=== PATIENT | female | born 1970 | race Caucasian/White ===

== ENCOUNTER 2019-06-04 19:40 | Emergency (ER) | payer OTHER ==
[~2019-06-04] VITALS: Ht 160 cm; Wt 83.0 kg
[2019-06-04] MEDS ORDERED: SYNTHROID50 MCG (19:46)
[2019-06-04] MEDS ORDERED: MEDROLPACK PO (21:02)
[2019-06-04] MEDS ORDERED: ZYRTEC10 M3 PO (21:02)
== END 2019-06-04 21:12 ==
LOC: ER 19:40
DX: L50.8 Other urticaria (principal); R21 Rash and other nonspecific skin eruption

== ENCOUNTER 2019-10-17 07:27 | Emergency (ER) | payer OTHER ==
[~2019-10-17] VITALS: Ht 154.9 cm; Wt 85.7 kg
[~2019-10-17 07:27] MED LIST: MEDROLPACK PO; SYNTHROID50 MCG; ZYRTEC10 M3 PO
== END 2019-10-17 15:36 | disposition home or self-care (01) ==
LOC: ER 07:27
DX: K57.92 Diverticulitis of intestine, part unspecified, without perforation or abscess without bleeding (principal); R10.32 Left lower quadrant pain

== ENCOUNTER 2022-12-24 19:54 | Emergency (ER) | payer OTHER ==
[~2022-12-24] VITALS: Ht 160 cm; Wt 70.8 kg
[2022-12-24] MEDS ORDERED: LEVOTHYROXINE75 MCG (20:17)
== END 2022-12-24 20:53 | disposition home or self-care (01) ==
LOC: ER 19:54
DX: S61.251A Open bite of left index finger without damage to nail, initial encounter (principal); W54.0XXA Bitten by dog, initial encounter; Y93.9 Activity, unspecified; Y92.018 Other place in single-family (private) house as the place of occurrence of the external cause; Y99.9 Unspecified external cause status; L03.012 Cellulitis of left finger; Z88.8 Allergy status to other drugs, medicaments and biological substances

== ENCOUNTER 2025-03-11 06:31 | Emergency (ER) | payer OTHER ==
[~2025-03-11] VITALS: Ht 157.5 cm; Wt 83.9 kg
[~2025-03-11 06:31] MED LIST changes: +LEVOTHYROXINE75 MCG
[2025-03-11] MEDS ORDERED: GUAIFEN/DEXTROMETHORPHAN/PE 10 ML BLIST.PACK PO ONE ×2 (08:41→08:45)
[2025-03-11] MEDS ORDERED: ACETAMINOPHEN 500 MG GEL..CAP PO ONE ×2 (08:41→08:45)
[2025-03-11 09:43] LABS: BASO % 0.3 % (0.1-1.2); EOS # 0.09 (0.04-0.54); EOS % 0.7 % (0.7-7.0); HEMATOCRIT 36.1 % (34.1-44.9); LYMPH # 0.82 (1.18-3.74); LYMPH % 6.7 % (19.3-53.1); MEAN CORPUSCULAR HEMOGLOBIN 28.6 pg (25.6-32.2); MONO # 0.99 (0.24-0.82); MONO % 8.1 % (4.7-12.5); NEUT # 10.29 (1.56-6.13); NEUT % 83.8 % (34.0-71.1); PLATELET COUNT 263 K/uL (163-369); RED CELL DISTRIBUTION WIDTH 13.7 % (11.6-14.4)
[2025-03-11 09:52] LABS: COVID-19 AG NEGATIVE (NEGATIVE); INFLUENZA A AG NEGATIVE (NEGATIVE); INFLUENZA B AG NEGATIVE (NEGATIVE)
[2025-03-11 09:56] LABS: PH,URINE 5.5 (5.0-8.0); URINE APPEARANCE Cloudy; URINE BILIRRUBIN Negative (NEGATIVE); URINE BLOOD Large; URINE COLOR Dark Yellow; URINE GLUCOSE Negative (NEGATIVE); URINE LEUKOCYTE Small; URINE NITRATE Positive
[2025-03-11 10:01] LABS: URINE EPITHELIAL CELLS 9.3 uL (0.0-38.8); URINE RBC 97.8 uL (0.0-20.8)
[2025-03-11 10:11] LABS: ALBUMIN 3.5 gm/dL (3.4-5.0); BILIRUBIN TOTAL 0.32 mg/dL (0.3-1.2); CALCIUM 9.5 mg/dL (8.5-10.1); CREATININE SERUM 0.54 mg/dL (0.55-1.02); GFR 118.55; GLOBULINA 4.8 G/DL (2.4-3.5); POTASSIUM 3.55 mEq/L (3.5-5.1); TOTAL PROTEIN 8.3 gm/dL (6.4-8.2)
[2025-03-11 10:43] LABS: URINE BACTERIA > 9821.5 uL (0.0-1933); URINE CAST 1.17 uL (0.0-1.40); URINE KETONE 40 (NEGATIVE); URINE PROTEIN 100 (NEGATIVE)
[2025-03-11] MEDS ORDERED: LIDOCAINE HCL 1% 10ML VIAL ONE (10:55)
[2025-03-11] MEDS ORDERED: CEFTRIAXONE SODIUM 1,000 MG VIAL ONE (10:55)
[2025-03-11] MEDS ORDERED: CEFTRIAXONE SODIUM 1,000 MG VIAL IM ONE (11:00)
== END 2025-03-11 12:45 | disposition home or self-care (01) ==
LOC: ER 06:36
PROVIDERS: Emergency Medicine
DX: B34.9 Viral infection, unspecified (principal); N39.0 Urinary tract infection, site not specified; J02.9 Acute pharyngitis, unspecified; Z20.822 Contact with and (suspected) exposure to COVID-19; Z88.8 Allergy status to other drugs, medicaments and biological substances